=== PATIENT | male | born 1995 | race Caucasian/White ===

== ENCOUNTER 2019-03-04 00:18 | Emergency (ER) | payer BC ==
[2019-03-04 01:20] LABS: APPEARANCE,URINE SLIGHTLY-CLOUDY; BILIRUBIN,URINE NEGATIVE (NEGATIVE); COLOR,URINE YELLOW; GLUCOSE, URINE 50 mg/dL (NEGATIVE); KETONES,URINE TRACE mg/dL (NEGATIVE); LEUKOCYTE ESTERASE,URINE TRACE (NEGATIVE); NITRITE,URINE NEGATIVE (NEGATIVE); PROTEIN,URINE NEGATIVE (NEGATIVE); URINE SPECIFIC GRAVITY 1.033
--- NOTE | 2019-03-04 02:10 | ER Document Report ---
HPI - HPI Time Seen by Provider: 03/04/19 01:56 Pain Level: 4 Notes: Patient is a 23-year-old male who presents to the emergency department with a 5- day history of urinary frequency. Patient states that he will get the urge to urinate but only a small amount will come out at times. States that it feels like a "stinging" at the tip of his penis when he urinates. Patient states he has been taking his family members left over Bactrim for 3 days as well as their Pyridium. Patient states that the Pyridium has been helping with the spasms. Denies fever, denies chills, denies abdominal pain. Patient does report that he is sexually active with his girlfriend only, they do not use protection. He would like to get screened for possible STI. Patient denies penile discharge. Patient denies penile lesions. Denies testicle pain. Denies rash. - URINARY Urinary: REPORTS: Dysuria, Urgency, Frequency - REPRODUCTIVE Reproductive: DENIES: : - DERM Skin Color: Normal Skin Problems: None Past Medical History - General Information source: Patient - Social History Smoking Status: Unknown if Ever Smoked Family History: Reviewed & Not Pertinent Pulmonary Medical History: Reports: Hx Asthma Psychiatric Medical History: Reports: Hx Depression - Immunizations Hx Diphtheria, Pertussis, Tetanus Vaccination: Yes Vertical Provider Document - CONSTITUTIONAL Agree With Documented VS: Yes Exam Limitations: No Limitations General Appearance: WD/WN, No Apparent Distress - INFECTION CONTROL TRAVEL OUTSIDE OF THE [place] IN LAST 30 DAYS: No - HEENT HEENT: Atraumatic - NECK Neck: Normal Inspection - RESPIRATORY Respiratory: Breath Sounds Normal, No Respiratory Distress - CARDIOVASCULAR Cardiovascular: Regular Rate, Regular Rhythm - GI/ABDOMEN Gastrointestinal: Abdomen Soft, Abdomen Non-Tender - NEURO Level of Consciousness: Awake, Alert, Appropriate - DERM Integumentary: Warm, Dry Course - Re-evaluation Re-evalutation: 03/04/19 Will go ahead and treat patient prophylactically with Rocephin and Azithromycin. Patient in agreement of plan. Gave patient to return if symptoms worsen such as inability to urinate, fever, rash, open lesions or any other concerning signs or symptoms. - Vital Signs Vital signs: Temp Pulse Resp BP Pulse Ox 98.0 F 71 20 105/53 L 97 03/04/19 00:39 03/04/19 00:39 03/04/19 00:39 03/04/19 00:39 03/04/19 00:39 - Laboratory Laboratory results interpreted by me: 03/04/19 01:00 Urine Glucose (UA) 50 H Urine Ketones TRACE H Urine Urobilinogen 4.0 H Ur Leukocyte Esterase TRACE H Urine Ascorbic Acid 40 H Discharge - Discharge Clinical Impression: Urethritis Condition: Stable Disposition: HOME, SELF-CARE Additional Instructions: Today you were seen in the emergency department for pain with urination. Your urine did not had a significant amount of bacteria but we are treating you prophylactically for possible bacterial infection. We did run a urine culture as well as a gonorrhea and chlamydia culture. The antibiotics that you received in the emergency department treat both of these but you will still be notified to the results of the tests. If you are not called within the next 24 hours please call the hospital to get your results. Please return to the emergency department if you develop a fever, rash, inability to urinate, penile discharge, testicular pain, or any other concerning signs or symptoms.
[2019-03-04] MEDS ORDERED: AZITHROMYCIN 250 MG TABLET PO ONE (02:29)
[2019-03-04] MEDS ORDERED: CEFTRIAXONE INJ 250 MG VIAL IM ONE (02:29)
[2019-03-04] MEDS ORDERED: LIDOCAINE 1% INJ-PF (10 MG/ML) 30 ML SDV ONE (03:02)
[2019-03-04 03:15] VITALS: BP 128/81
== END 2019-03-04 03:22 | disposition home or self-care (01) ==
LOC: ER 00:18
DX: N34.2 Other urethritis (principal); R35.0 Frequency of micturition; J45.909 Unspecified asthma, uncomplicated
CPT/HCPCS: 99283; 96372; 87086; 81001; J3490; J0696